=== PATIENT | female | born 1955 | race Two or more races ===

== ENCOUNTER 2022-09-17 14:34 | Emergency (ER) | payer OTHER ==
[~2022-09-17] VITALS: Ht 152.4 cm; Wt 68.0 kg
[2022-09-17] MEDS ORDERED: HYDROcodone-ACET 5/325MG TAB PO ONE (15:00)
[2022-09-17] MEDS ORDERED: LIDOCAINE 1% HCL (LOCAL ANESTH.) INJ 20ML MDV ID ONE (15:00)
[2022-09-17] MEDS ORDERED: TETANUS-DIPTH-ACEL PERTUSSIS 0.5ML SYR Tdap IM ONE (15:00)
[2022-09-17] MEDS ORDERED: ACET500T58 PO (15:47)
[2022-09-17] MEDS ORDERED: CEPH250C PO (15:47)
[2022-09-17 15:59] VITALS: BP 114/54
== END 2022-09-17 16:21 | disposition home or self-care (01) ==
LOC: EDBD 14:34 → ER 14:34
DX: S91.012A Laceration without foreign body, left ankle, initial encounter (principal); W01.110A Fall on same level from slipping, tripping and stumbling with subsequent striking against sharp glass, initial encounter; Y93.89 Activity, other specified; Y92.89 Other specified places as the place of occurrence of the external cause; Y99.8 Other external cause status
CPT/HCPCS: 12004; 90471; 90715